=== PATIENT | male | born 1940 | race Caucasian/White ===

== ENCOUNTER 2018-01-12 12:23 | Outpatient (CLI) | payer OTHER ==
[~2018-01-12 12:23] MED LIST: LIPITOR20 MG PO; TAMS0.4C PO; [UNRECOGNIZED DRUG - OTHER] PO
== END 2018-01-12 16:49 | disposition home or self-care (01) ==
LOC: NUCLEAR 12:23
DX: I10 Essential (primary) hypertension (principal)

== ENCOUNTER 2018-01-16 11:30 | Inpatient (IN) | payer OTHER ==
[~2018-01-16] VITALS: Ht 162.6 cm; Wt 80.7 kg
[2018-01-18] MEDS ORDERED: DIGOXIN125 MCG PO (12:56)
[2018-01-23] MEDS ORDERED: VITAMIN B-12500 MC3 SL (17:52)
[2018-01-23] MEDS ORDERED: INTESTINEX680 M1 PO (17:52)
[2018-01-23] MEDS ORDERED: TYLENOL ARTHRI650 MG PO (17:52)
[2018-01-23] MEDS ORDERED: INTEGRA F CAPS1 EACH PO (17:52)
== END 2018-01-23 18:17 | disposition home or self-care (01) | DRG 330 ==
LOC: O/R 01-17 08:25 → SURG 01-17 08:25 → SURH 01-17 11:06 → MEDI 01-18 00:03 → SURG 01-18 00:03
PROVIDERS: Surgery
PROC: 0DJD8ZZ Inspection of Lower Intestinal Tract, Via Natural or Artificial Opening Endoscopic (ICD-10-PCS; 2018-01-17)
PROC: 4A12X4Z Monitoring of Cardiac Electrical Activity, External Approach (ICD-10-PCS; 2018-01-17)
PROC: 0DTN4ZZ Resection of Sigmoid Colon, Percutaneous Endoscopic Approach (ICD-10-PCS; principal; 2018-01-17 12:30)
PROC: 30233N1 Transfusion of Nonautologous Red Blood Cells into Peripheral Vein, Percutaneous Approach (ICD-10-PCS; 2018-01-20)
PROC: 3E0F7GC Introduction of Other Therapeutic Substance into Respiratory Tract, Via Natural or Artificial Opening (ICD-10-PCS; 2018-01-21)
DX: K57.32 Diverticulitis of large intestine without perforation or abscess without bleeding (principal); N17.8 Other acute kidney failure; I50.20 Unspecified systolic (congestive) heart failure; N13.8 Other obstructive and reflux uropathy; I48.0 Paroxysmal atrial fibrillation; E78.4 Other hyperlipidemia; I25.10 Atherosclerotic heart disease of native coronary artery without angina pectoris; N99.0 Postprocedural (acute) (chronic) kidney failure; D64.89 Other specified anemias; I11.0 Hypertensive heart disease with heart failure; N40.1 Benign prostatic hyperplasia with lower urinary tract symptoms; Z98.61 Coronary angioplasty status

== ENCOUNTER 2019-02-26 05:46 | Day surgery (SDC) | payer OTHER ==
[~2019-02-26 05:46] MED LIST changes: +DIGOXIN125 MCG PO; +INTEGRA F CAPS1 EACH PO; +INTESTINEX680 M1 PO; +TYLENOL ARTHRI650 MG PO; +VITAMIN B-12500 MC3 SL
== END 2019-02-26 09:20 | disposition home or self-care (01) ==
LOC: AMB-ENDOS 05:46
DX: D12.0 Benign neoplasm of cecum (principal)